=== PATIENT | male | born 1940 | race Asian ===

== ENCOUNTER 2019-01-01 13:56 | Outpatient (CLI) | payer MEDICARE, BC | END 2019-01-01 13:57 | disposition home or self-care (01) | LOC: ULT 13:56 | PROVIDERS: ATTEND Internal Medicine | DX: R01.1 Cardiac murmur, unspecified (principal); I08.3 Combined rheumatic disorders of mitral, aortic and tricuspid valves | CPT/HCPCS: 93306 ==

== ENCOUNTER 2020-07-12 12:33 | Emergency (ER) | payer MEDICARE, BC ==
[2020-07-12] MEDS ORDERED: Lorazepam 2 MG/ML VIAL ONE ×2 (12:48→12:55)
[2020-07-12] MEDS ORDERED: Metoprolol Tartrate 25 MG TAB ONE (12:51)
[2020-07-12] MEDS ORDERED: Metoprolol Tartrate 5 MG/5 ML VIAL ONE (12:51)
[2020-07-12] MEDS ORDERED: levETIRAcetam 500 MG/100 ML PREMIX BAG ONE ×2 (12:53→12:57)
[2020-07-12] MEDS ORDERED: Adenosine 6 MG/2 ML VIAL ONE (12:53)
[2020-07-12 14:00] LABS: #Lymphocytes 1.3 thou/uL (1.20-3.40); #Monocytes 0.7 thou/uL (0.11-0.59); #Neutrophils 7.9 thou/uL (1.40-6.50); %Basophils 0.3 % (0.0-1.0); %Eosinophils 0.5 % (0.0-10.0); %Lymphocytes 13.4 % (21.0-51.0); %Monocytes 6.9 % (0.0-10.0); Hemoglobin 15.4 g/dL (12.0-16.0); Mean Corpuscular HGB CONC 33.1 g/dL (32.0-36.0); Mean Corpuscular Hemoglobin 30.1 pg (27.0-31.0); Mean Corpuscular Volume 90.8 fL (78.0-98.0); Mean Platelet Volume 7.3 fL (7.4-10.4); Platelet Count 203 thou/uL (130-400); RBC Distribution Width 14.5 % (11.5-14.5); Red Blood Cell (RBC) Count 5.11 mill/uL (4.20-5.40)
[2020-07-12 14:23] LABS: ALT (SGPT) 23 U/L (8-55); AST (SGOT) 26 U/L (5-34); Albumin 4.1 g/dL (3.4-4.8); Alkaline Phosphatase 49 U/L (40-110); Anion Gap 24 mmol/L (10-20); BUN (Urea Nitrogen) 14 mg/dL (9.8-20.1); Bilirubin, Total 0.7 mg/dL (0.2-1.2); Calc. Creatinine Clearance 0 mL/min (70-130); Calcium 9.6 mg/dL (7.8-10.44); Carbon Dioxide 16 mmol/L (23-31); Chloride 106 mmol/L (98-107); Globulin 3.8 g/dL (2.4-3.5); Glucose 121 mg/dL (83-110); Magnesium 2.3 mg/dL (1.6-2.6); Potassium 3.7 mmol/L (3.5-5.1); Protein, Total 7.9 g/dL (5.8-8.1); Sodium 142 mmol/L (136-145)
[2020-07-12] MEDS ORDERED: Aspirin 300 MG Suppository ONE (14:38)
[2020-07-12] MEDS ORDERED: Cefepime 2 GM VIAL ONE (14:38)
[2020-07-12 14:43] LABS: Acetaminophen Less than 6.0 mcg/mL (10.0-30.0); Alcohol Less than 10 mg/dL (Less than 10); Salicylate Less than 8.0 mg/dL (15.0-30.0)
[2020-07-12] MEDS ORDERED: VANCOMYCIN 1.25 GM/250 ML BAG 1.25 GM in Premix Bag 1 BAG IVPB SCH (14:45)
[2020-07-12 15:01] LABS: CKMB 0.4 ng/mL (0-6.6)
[2020-07-12] MEDS ORDERED: PROPOFOL 20 ML ONE (15:17)
[2020-07-12] MEDS ORDERED: Rocuronium Bromide 10 MG/ML (10ML VIAL) ONE (15:17)
[2020-07-12] MEDS ORDERED: levETIRAcetam in NS 100 ML ONE (15:53)
[2020-07-12] MEDS ORDERED: Propofol 1,000 MG/100 ML VIAL IV ONE (15:56)
[2020-07-12 16:07] LABS: Actual Bicarbonate (HCO3a) 20.3 mEq/L (22-28); Analyzer IN Cardio ER; Base Excess (BEa) -2.8 mEq/L (-2.0 to +3.0); CO2 Tension 31.2 mmHg (35.0-45.0); Calcium, Ionized (arterial) 1.17 mmol/L (1.12-1.30); Carboxyhemoglobin (COHb) 0.2 gm% (0.0-3.0); Hemoglobin (Hb) 14.8 g/dL (12.0-16.0); O2 Tension (PaO2), arterial 129.8 mmHg (> 70.0); Potassium - ABG Lab 3.85 mmol/L (3.70-5.30); pH, Arterial 7.43 (7.35-7.45)
[2020-07-12 16:08] LABS: Puncture Site LRA
[2020-07-12 16:30] LABS: Bacteria/HPF 3+ HPF (None Seen); Bilirubin Negative (Negative); Blood, Urine Trace (Negative); Clarity Turbid (Clear); Glucose, Urine (Dipstick) Normal (Negative); Ketone, Urine Negative (Negative); Leukocyte 250 Leu/uL (Negative); Nitrite Negative (Negative); Protein, Urine (Dipstick) Negative (Neg-Trace); Specific Gravity, Urine 1.013 (1.002-1.036); Transitional Epithelial 0-3 HPF (None Seen); Urobilinogen Normal mg/dL (Less than 2); WBC/HPF 21-50 HPF (0-3); pH, Urine 7.5 (5.0-9.0)
[2020-07-12 16:39] LABS: SARS-CoV-2 NAA Rapid Test DETECTED (NotDetected)
[2020-07-12 16:39] LABS: Amphetamine Not Detected (NotDetected); Barbiturates Screen Not Detected (NotDetected); Benzodiazepine Screen Detected (NotDetected); Cocaine Metabolite Screen Not Detected (NotDetected); Medtox Control Line Valid? VALID (VALID); Medtox Reader # READER 4; Methadone Not Detected (NotDetected); Methamphetamine Not Detected (NotDetected); Opiate Screen Not Detected (NotDetected); Oxycodone Screen Not Detected (NotDetected); Phencyclidine (PCP) Not Detected (NotDetected); THC/Cannabinoid Screen Not Detected (NotDetected); Tricyclic Screen Not Detected (NotDetected)
[2020-07-12 17:56] LABS: Troponin I 0.034 ng/mL (< 0.028)
[2020-07-12 18:04] LABS: Lactic Acid 4.2 mmol/L (0.5-2.2)
[2020-07-12] MEDS ORDERED: Fosphenytoin Sodium 1,250 MG in Sodium Chloride 0.9% 50 ML IVPB SCH (19:00)
[2020-07-12] MEDS ORDERED: Norepinephrine 8 MG/0.9% NS 250 ML ONE (19:54)
== END 2020-07-12 21:45 | disposition short-term general hospital (02) ==
LOC: EDSEX 12:33 → ERS 12:33 → EDBD 12:33 → ERS 21:45
DX: U07.1 COVID-19 (principal); G40.901 Epilepsy, unspecified, not intractable, with status epilepticus; E87.2 Acidosis; I47.1 Supraventricular tachycardia; Z79.01 Long term (current) use of anticoagulants
CPT/HCPCS: 0240U; 36600; 70450; 71045; 74018; 80306; 80307; 82140; 82553; 82805; 82962; 83605; 83735; 83880; 84484 ×2; 87040; 87086; 93005; 94002; 31500; 36415; 36416; 36556; 51702; 80053; 81003; 81015; 84443; 85025; 96365; 96366; 96367; 96368; 96375; 99292; J0153; J0692; J1953; J2060; J2704; J3370; Q2009